=== PATIENT | female | born 1985 | race Hispanic/Latino ===

== ENCOUNTER 2017-11-29 22:58 | Emergency (ER) | payer SELFPAY ==
--- NOTE | 2017-11-30 00:06 | ER ---
Nurse's Notes [facility] Name: Kiana Foster Age: 32 yrs Sex: Female : 1985 Arrival Date: 11/29/2017 Time: 23:01 Bed 24 Private MD: Diagnosis: Local infection of the skin and subcutaneous tissue, unspecified Presentation: 11/29 23:13 Presenting complaint: Patient states: that she noted a couple of days ago that she what fc she thinks is an insect bit to left lower abd. Today it opened and had yellow drainage. Area around the wound is red, hot and tender. Transition of care: patient was not received from another setting of care. Onset of symptoms was November 27, 2017. Risk Assessment: Do you want to hurt yourself or someone else? Patient reports no desire to harm self or others. Initial Sepsis Screen: Does the patient meet any 2 criteria? No. Patient's initial sepsis screen is negative. Does the patient have a suspected source of infection? No. Patient's initial sepsis screen is negative. Care prior to arrival: None. 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 - Social history:: Smoking status: Patient uses tobacco products, smokes one pack cigarettes per day. - Ebola Screening: : Patient negative for fever greater than or equal to 101.5 degrees Fahrenheit, and additional compatible Ebola Virus Disease symptoms Patient denies exposure to infectious person Patient denies travel to an Ebola-affected area in the 21 days before illness onset. Screenin:19 Abuse screen: Denies threats or abuse. Denies injuries from another. Nutritional mg2 screening: No deficits noted. Tuberculosis screening: No symptoms or risk factors identified. Fall Risk None identified. Assessment: 23:19 General: Appears in no apparent distress. comfortable, Behavior is calm, cooperative. mg2 Pain: Complains of pain in left lower abdomen Pain does not radiate. Pain currently is 6 out of 10 on a pain scale. Quality of pain is described as aching, Pain began gradually, 2-3 days ago. Is intermittent. Neuro: Level of Consciousness is awake, alert, obeys commands, Oriented to person, place, time, situation. Cardiovascular: Capillary refill < 3 seconds Patient's skin is warm and dry. Respiratory: Airway is patent Respiratory effort is even, unlabored, Respiratory pattern is regular, symmetrical. GI: No signs and/or symptoms were reported involving the gastrointestinal system. : No signs and/or symptoms were reported regarding the genitourinary system. EENT: No signs and/or symptoms were reported regarding the EENT system. Derm: Skin has lesions on in the left lower abdomen Skin is pink, warm \T\ dry. normal, Abscess located on left lower abdomen is quarter sized. Musculoskeletal: Circulation, motion, and sensation intact. Vital Signs: 23:16 BP 140 / 95; Pulse 77; Resp 18; Temp 99.7(O); Pulse Ox 100% on R/A; Weight 142.88 kg fc (R); Height 5 ft. 8 in. (172.72 cm) (R); Pain 6/10; 23:16 Body Mass Index 47.89 (142.88 kg, 172.72 cm) ED Course: 23:01 Patient arrived in ED. es 23:15 Triage completed. 23:16 Arm band placed on Patient placed in an exam room, on a stretcher. 23:19 Clif Vallejo, ANTHONY is Primary Nurse. mg2 23:24 Patient has correct armband on for positive identification. Door closed. Warm blanket mg2 given. 23:31 Lew Carrion PA is PHCP. jr8 23:31 Rick Moran MD is Attending Physician. jr8 08 00:16 No provider procedures requiring assistance completed. Patient did not have IV access mg2 during this emergency room visit. Administered Medications: No medications were administered Outcome: 00:06 Discharge ordered by . jr8 00:16 Discharged to home ambulatory, with family. mg2 00:16 Condition: good 00:16 Discharge instructions given to patient, family, Instructed on discharge instructions, follow up and referral plans. medication usage, Demonstrated understanding of instructions, follow-up care, medications, Prescriptions given X 1. 00:20 Patient left the ED. mg2 Signatures: Alyse Barrientos Felicia RN RN fc Lew Carrion PA PA jr8 Clif Vallejo, RN RN mg2
--- NOTE | 2017-11-30 00:06 | EDPHYS ---
Physician Documentation [facility] Name: Kiana Foster Age: 32 yrs Sex: Female : 1985 Arrival Date: 11/29/2017 Time: 23:01 Bed 24 Private MD: ED Physician Rick Moran HPI: 11/30 00:01 This 32 yrs old Female presents to ER via Ambulatory with complaints of skin jr8 infection . 00:01 the patient presents with a swollen area of the abdomen. Description: The affected area jr8 is small, well demarcated, draining, erythematous. Onset: The symptoms/episode began/occurred gradually, 2 day(s) ago. Possible cause(s): unknown. Associated signs and symptoms: The patient has no apparent associated signs or symptoms. Severity of symptoms: At their worst the symptoms were mild, in the emergency department the symptoms are unchanged. The patient has not experienced similar symptoms in the past. The patient has not recently seen a physician. Patient stated that she noticed blood blister like formation on lower abdomen the size of a quarter. Today it popped. Blood and yellow exudative material came from wound. Stated that she has increased erythema around the wound now as well . 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 - Social history:: Smoking status: Patient uses tobacco products, smokes one pack cigarettes per day. - Ebola Screening: : Patient negative for fever greater than or equal to 101.5 degrees Fahrenheit, and additional compatible Ebola Virus Disease symptoms Patient denies exposure to infectious person Patient denies travel to an Ebola-affected area in the 21 days before illness onset. ROS: 11/30 00:01 Eyes: Negative for injury, pain, redness, and discharge, ENT: Negative for injury, jr8 pain, and discharge, Neck: Negative for injury, pain, and swelling, Cardiovascular: Negative for chest pain, palpitations, and edema, Respiratory: Negative for shortness of breath, cough, wheezing, and pleuritic chest pain, Abdomen/GI: Negative for abdominal pain, nausea, vomiting, diarrhea, and constipation, Back: Negative for injury and pain, MS/Extremity: Negative for injury and deformity, Neuro: Negative for headache, weakness, numbness, tingling, and seizure. Skin: Positive for abscess, erythema, of the abdomen. Exam: 00:01 Eyes: Pupils equal round and reactive to light, extra-ocular motions intact. Lids and jr8 lashes normal. Conjunctiva and sclera are non-icteric and not injected. Cornea within normal limits. Periorbital areas with no swelling, redness, or edema. ENT: Nares patent. No nasal discharge, no septal abnormalities noted. Tympanic membranes are normal and external auditory canals are clear. Oropharynx with no redness, swelling, or masses, exudates, or evidence of obstruction, uvula midline. Mucous membranes moist. Neck: Trachea midline, no thyromegaly or masses palpated, and no cervical lymphadenopathy. Supple, full range of motion without nuchal rigidity, or vertebral point tenderness. No Meningismus. Cardiovascular: Regular rate and rhythm with a normal S1 and S2. No gallops, murmurs, or rubs. Normal PMI, no JVD. No pulse deficits. Respiratory: Lungs have equal breath sounds bilaterally, clear to auscultation and percussion. No rales, rhonchi or wheezes noted. No increased work of breathing, no retractions or nasal flaring. Abdomen/GI: Soft, non-tender, with normal bowel sounds. No distension or tympany. No guarding or rebound. No evidence of tenderness throughout. Back: No spinal tenderness. No costovertebral tenderness. Full range of motion. MS/ Extremity: Pulses equal, no cyanosis. Neurovascular intact. Full, normal range of motion. Neuro: Awake and alert, GCS 15, oriented to person, place, time, and situation. Cranial nerves II-XII grossly intact. Motor strength 5/5 in all extremities. Sensory grossly intact. Cerebellar exam normal. Normal gait. 00:01 Skin: Quarter sized area on left lower abdomen that had previous blister formation. Now with serosanguinous discharge from wound. About 3 cm of erythema surrounds the blister. Mild induration felt. No fluctuance noted . Vital Signs: 11/29 23:16 BP 140 / 95; Pulse 77; Resp 18; Temp 99.7(O); Pulse Ox 100% on R/A; Weight 142.88 kg (R); Height 5 ft. 8 in. (172.72 cm) (R); Pain 6/10; 23:16 Body Mass Index 47.89 (142.88 kg, 172.72 cm) MDM: 23:31 Patient medically screened. jr8 11/30 00:01 Data reviewed: vital signs, nurses notes, and as a result, I will discharge patient. jr8 Data interpreted: Pulse oximetry: on room air is 100 %. Interpretation: normal. Counseling: I had a detailed discussion with the patient and/or guardian regarding: the historical points, exam findings, and any diagnostic results supporting the discharge/admit diagnosis, the need for outpatient follow up, a family practitioner, to return to the emergency department if symptoms worsen or persist or if there are any questions or concerns that arise at home. Administered Medications: No medications were administered Disposition: 07:08 Co-signature as Attending Physician, Rick Moran MD I agree with the assessment and wa plan of care. Disposition: 11/30/17 00:06 Discharged to Home. Impression: Local infection of the skin and subcutaneous tissue, unspecified. - Condition is Stable. - Discharge Instructions: Skin Abscess, Cellulitis, Adult. - Prescriptions for Bactrim DS 800- 160 mg Oral Tablet - take 1 tablet by ORAL route every 12 hours for 10 days; 20 tablet. - Medication Reconciliation Form, Thank You Letter, Antibiotic Education, Prescription Opioid Use, Work release form form. - Follow up: Private Physician; When: 5 - 6 days; Reason: Recheck today's complaints, Continuance of care, Re-evaluation by your physician. - Problem is new. - Symptoms have improved. Signatures: Jessi Walsh RN RN Lew Carrion PA PA jr8 Rick Moran MD MD mo Clif Vallejo RN RN mg2 Corrections: (The following items were deleted from the chart) 00:20 00:06 11/30/2017 00:06 Discharged to Home. Impression: Local infection of the skin and mg2 subcutaneous tissue, unspecified. Condition is Stable. Forms are Medication Reconciliation Form, Thank You Letter, Antibiotic Education, Prescription Opioid Use. Follow up: Private Physician; When: 5 - 6 days; Reason: Recheck today's complaints, Continuance of care, Re-evaluation by your physician. Problem is new. Symptoms have improved. jr8
[2017-11-30 00:43] VITALS: TEMP 99.7
[2017-11-30 00:48] VITALS: O2SAT 98
[2017-11-30 00:50] VITALS: BP 117/48
== END 2017-11-30 00:20 | disposition home or self-care (01) ==
LOC: ER 22:58
DX: L08.9 Local infection of the skin and subcutaneous tissue, unspecified (principal); F17.210 Nicotine dependence, cigarettes, uncomplicated
CPT/HCPCS: 99282

== ENCOUNTER 2018-01-09 19:06 | Inpatient (IN) | payer SELFPAY ==
[2018-01-09] MEDS ORDERED: ONDANSETRON 4 MG/2 ML VIAL ONE ×2 (19:55→21:16)
[2018-01-09] MEDS ORDERED: MORPHINE 4 MG/ML SYR ONE ×3 (19:55→22:08)
[2018-01-09] MEDS ORDERED: CEFTRIAXONE/SWI 1gm 1 GM/10 ML SYR ONE (19:55)
[2018-01-09] MEDS ORDERED: NA CHLORIDE 0.9% 1,000 ML ONE ×2 (19:55→20:15)
[2018-01-09 19:57] LABS: Absolute Lymphocytes (CBC) 1.2 K/uL (0.7-4.9); Absolute Monocytes 0.7 K/uL (0.1-1.3); Absolute Neutrophil 10.8 K/uL (1.8-8.0); Basophils % 0.3 % (0-1.3); Eosinophils % 0.6 % (0-4.4); Lymphocytes % 9.1 % (15.3-44.8); MCH 30.4 pg (27.0-35.0); MCV 90.3 fL (80-100); MPV 8.7 fL (7.6-11.3); Monocytes % 5.3 % (3.3-12.3); RBC Red Blood Cell Count 4.54 M/uL (3.86-4.86)
[2018-01-09 20:06] LABS: Urine Bacteria >50 /HPF (<20); Urine Culture Reflex Order NOT NEEDED; Urine RBC 20-50 /HPF (NONE SEEN)
[2018-01-09 20:14] LABS: Albumin 3.7 g/dL (3.4-5.0); Bilirubin Direct 0.1 mg/dL (0-0.2); Bilirubin Total 0.4 mg/dL (0.2-1.0); Protein, Total 8.3 g/dL (6.4-8.2)
--- NOTE | 2018-01-09 20:21 | RAD REPORT ---
EXAM DESCRIPTION: CT - Abdomen Pelvis Wo Contrast - 01/09/2018 7:51 pm CLINICAL HISTORY: Abdominal pain. renal colic COMPARISON: Abdomen Pelvis W Contrast dated 07/01/2016 TECHNIQUE: CT imaging of the abdomen and pelvis was performed without contrast. Solid organ, bowel a nd vascular assessment is limited due to lack of IV and oral contrast. All CT scans are performed using dose optimization technique as appropriate and may include automated exposure control or mA/KV adjustment according to patient size. FINDINGS: Small pulmonary nodule in the right lower lobe measuring 8 mm is noted, unchanged. The liver, spleen, pancreas, adrenal glands and right kidney are within normal limits for a limited n on-contrast examination.Mild left hydronephrosis and hydroureter is present caused by a suspected 1-2 mm calculus in the distal left ureter. No bowel obstruction, free air, free fluid or abscess. The appendix is normal. The osseous structures are within normal limits. IMPRESSION: Suspected 1-2 mm calculus in the distal left ureter resulting in mild left hydronephrosi s. A limited non-contrast examination was performed as detailed.
--- NOTE | 2018-01-09 20:35 | EDPHYS ---
Physician Documentation [facility] Name: Kiana Foster Age: 32 yrs Sex: Female : 1985 Arrival Date: 01/09/2018 Time: 19:08 Bed 15 Private MD: ED Physician Saloni Kim HPI: 01/09 19:42 This 32 yrs old Female presents to ER via Wheelchair with complaints of Flank ma2 Pain, Back Pain. 19:42 The patient complains of pain in the left low back. The pain does not radiate. Onset: ma2 The symptoms/episode began/occurred gradually, 1 day(s) ago. Associated signs and symptoms: Pertinent positives: dysuria, fever, nausea, vomiting, Pertinent negatives: diarrhea, dizziness. Severity of pain: in the emergency department the pain is actually worse. The patient has experienced a previous episode. 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 - Social history:: Smoking status: Patient/guardian denies using tobacco, Patient/guardian denies using alcohol, street drugs, The patient lives with family. - Ebola Screening: : No symptoms or risks identified at this time. - Family history:: not pertinent. ROS: 19:42 Constitutional: Negative for fever, chills, and weight loss, ENT: Negative for injury, ma2 pain, and discharge, Cardiovascular: Negative for chest pain, palpitations, and edema. 19:42 : Positive for urinary symptoms, flank pain, Negative for burning with urination, difficulty urinating, missed period. 19:42 All other systems are negative. Exam: 19:42 Neck: Trachea midline, no thyromegaly or masses palpated, and no cervical ma2 lymphadenopathy. Supple, full range of motion without nuchal rigidity, or vertebral point tenderness. No Meningismus. Chest/axilla: Normal chest wall appearance and motion. Nontender with no deformity. No lesions are appreciated. Cardiovascular: Regular rate and rhythm with a normal S1 and S2. No gallops, murmurs, or rubs. Normal PMI, no JVD. No pulse deficits. Respiratory: Lungs have equal breath sounds bilaterally, clear to auscultation and percussion. No rales, rhonchi or wheezes noted. No increased work of breathing, no retractions or nasal flaring. MS/ Extremity: Pulses equal, no cyanosis. Neurovascular intact. Full, normal range of motion. Neuro: Awake and alert, GCS 15, oriented to person, place, time, and situation. Cranial nerves II-XII grossly intact. Motor strength 5/5 in all extremities. Sensory grossly intact. Cerebellar exam normal. Normal gait. 19:42 Abdomen/GI: Soft, non-tender, with normal bowel sounds. No distension or tympany. No guarding or rebound. No evidence of tenderness throughout. 19:42 Constitutional: The patient appears in no acute distress. 19:42 : CVA tenderness, on the left. Vital Signs: 19:35 BP 143 / 92; Pulse 85; Resp 19; Temp 98.5(O); Pulse Ox 100% on R/A; Weight 141.52 kg; ea Height 5 ft. 8 in. (172.72 cm); Pain 8/10; 20:01 BP 146 / 82; Pulse 84; Resp 18; Pulse Ox 100% ; Pain 5/10; ea 21:00 BP 176 / 82; Pulse 75; Resp 18; Pulse Ox 100% ; ea 22:15 BP 154 / 89; Pulse 75; Resp 18; Temp 98; Pulse Ox 100% on R/A; Pain 6/10; ea 19:35 Body Mass Index 47.44 (141.52 kg, 172.72 cm) ea MDM: 19:24 Patient medically screened. ma2 19:42 Differential diagnosis: nephrolithiasis, pyelonephritis, UTI, pancreatitis. ma2 20:30 Data reviewed: vital signs, nurses notes, lab test result(s), radiologic studies. ma2 Counseling: I had a detailed discussion with the patient and/or guardian regarding: the historical points, exam findings, and any diagnostic results supporting the discharge/admit diagnosis, the presence of at least one elevated blood pressure reading (>120/80) during this emergency department visit, the need for further work-up and treatment in the hospital. Response to treatment: the patient's symptoms have mildly improved after treatment. ED course: case discussed with Dr. Proctor urologist, he recommend admission npo and IV abx, discussed and accepted by Dr. jarrett . 01/09 19:32 Order name: Urine Dipstick--Ancillary (enter results) [facility] 01/09 19:32 Order name: Urine Culture [facility] 01/09 19:32 Order name: Urine Microscopic Only; Complete Time: 20:24 [facility] 01/09 19:32 Order name: Urine --Ancillary (enter results) [facility] 01/09 19:40 Order name: Amylase, Serum; Complete Time: 20:24 [facility] 01/09 19:40 Order name: Basic Metabolic Panel; Complete Time: 20:24 [facility] 01/09 20:30 Interpretation: Within normal limits. [facility] 01/09 19:40 Order name: CBC with Diff; Complete Time: 20:24 [facility] 01/09 19:40 Order name: Creatinine for Radiology; Complete Time: 20:24 [facility] 01/09 19:40 Order name: Hepatic Function; Complete Time: 20:24 [facility] 01/09 19:40 Order name: Lipase; Complete Time: 20:24 [facility] 01/09 20:45 Order name: CBC with Automated Diff [facility] 01/09 20:45 Order name: CBC with Automated Diff [facility] 01/09 20:45 Order name: Comprehensive Metabolic Panel [facility] 01/09 20:45 Order name: Comprehensive Metabolic Panel [facility] 01/09 19:40 Order name: Urine Test (obtain specimen); Complete Time: 19:42 [facility] 01/09 19:40 Order name: IV Saline Lock; Complete Time: 19:42 [facility] 01/09 19:40 Order name: Labs collected and sent; Complete Time: 19:42 [facility] 01/09 19:40 Order name: CT Abd/Pelvis - Without Cont; Complete Time: 20:24 [facility] 01/09 20:40 Order name: CONS Pharmacy Consult [facility] 01/09 20:40 Order name: NPO [facility] 01/09 20:45 Order name: CONS Pharmacy Consult [facility] 01/09 20:45 Order name: CONS Physician Consult [facility] 01/09 19:40 Order name: Urine Dipstick-Ancillary (obtain specimen); Complete Time: 19:42 ma2 Administered Medications: 20:03 Drug: NS 0.9% 1000 ml Route: IV; Rate: 1 bolus; Site: left antecubital; ea 21:30 Follow up: Response: No adverse reaction; IV Status: Completed infusion; IV Intake: ea 1000ml 20:03 Drug: morphine 4 mg Route: IVP; Site: left antecubital; ea 20:24 Follow up: Response: No adverse reaction; Pain is decreased ea 20:04 Drug: Zofran 4 mg Route: IVP; Site: left antecubital; ea 20:25 Follow up: Response: No adverse reaction; Marked relief of symptoms ea 20:04 Drug: Rocephin 1 grams Route: IV; Rate: calculated rate; Site: left antecubital; ea 20:25 Follow up: Response: No adverse reaction; IV Status: Completed infusion ea 20:19 Drug: NS 0.9% 1000 ml Route: IV; Rate: 1 bolus; Site: left antecubital; ea 22:00 Follow up: Response: No adverse reaction; IV Status: Completed infusion; IV Intake: ea 1000ml 21:00 Drug: morphine 4 mg Route: IVP; Site: left antecubital; ea 21:30 Follow up: Response: No adverse reaction; Marked relief of symptoms; Pain is decreased ea 21:17 Drug: Zofran 4 mg Route: IVP; Site: left antecubital; ea 21:30 Follow up: Response: No adverse reaction; Marked relief of symptoms ea 22:07 Drug: morphine 4 mg Route: IVP; Site: left antecubital; ea 22:20 Follow up: Response: No adverse reaction; Pain is decreased ea Disposition: 01/09/18 20:34 Hospitalization ordered by Saloni Jarrett for Inpatient Admission. Preliminary diagnosis are Calculus of lower urinary tract, Urinary tract infection, site not specified. - Bed requested for Telemetry/MedSurg (Inpatient). - Status is Inpatient Admission. ea - Condition is Fair. - Problem is new. - Symptoms are unchanged. UTI on Admission? Yes Signatures: Dispatcher [employer] EDMS R[place]a [place] rg2 Kinsey Miller RN RN ea Alzahri, Mohammad, MD MD ma2 Corrections: (The following items were deleted from the chart) 20:30 20:30 Abnormal. ma2 ma2 21:59 20:34 Hospitalization Ordered by Saloni Jarrett MD for Inpatient Admission. Preliminary rg2 diagnosis is Calculus of lower urinary tract; Urinary tract infection, site not specified. Bed requested for Telemetry/MedSurg (Inpatient). Status is Inpatient Admission. Condition is Fair. Problem is new. Symptoms are unchanged. UTI on Admission? Yes. ma2 22:30 21:59 01/09/2018 20:34 Hospitalization Ordered by Saloni Jarrett MD for Inpatient ea Admission. Preliminary diagnosis is Calculus of lower urinary tract; Urinary tract infection, site not specified. Bed requested for Telemetry/MedSurg (Inpatient). Status is Inpatient Admission. Condition is Fair. Problem is new. Symptoms are unchanged. UTI on Admission? Yes. rg2
--- NOTE | 2018-01-09 20:35 | ER ---
Nurse's Notes [facility] Name: Kiana Foster Age: 32 yrs Sex: Female : 1985 Arrival Date: 01/09/2018 Time: 19:08 Bed 15 Private MD: Diagnosis: Calculus of lower urinary tract;Urinary tract infection, site not specified Presentation: 01/09 19:31 Presenting complaint: Patient states: Patient states she started to have left flank ea pain that started yesterday and started to get worse this evening. Pt reports history of kidney stone about 18 months ago, and complains of urinary frequency. Transition of care: patient was not received from another setting of care. Onset of symptoms was January 09, 2018. Risk Assessment: Do you want to hurt yourself or someone else? Patient reports no desire to harm self or others. Initial Sepsis Screen: Does the patient meet any 2 criteria? No. Patient's initial sepsis screen is negative. Does the patient have a suspected source of infection? Yes: Dysuria/Frequency/Urgency/UTI. Care prior to arrival: None. 19:31 Method Of Arrival: Wheelchair ea 19:31 Acuity: ROGER 3 ea Triage Assessment: 19:34 General: Appears uncomfortable, Behavior is calm, cooperative. Pain: Complains of pain ea in left low back, left flank Pain currently is 8 out of 10 on a pain scale. Quality of pain is described as aching, Pain began 1 day ago. Is intermittent. EENT: No signs and/or symptoms were reported regarding the EENT system. Neuro: Level of Consciousness is awake, alert, obeys commands, Oriented to person, place, time, situation. Cardiovascular: Patient's skin is warm and dry. Respiratory: Airway is patent Respiratory effort is even, unlabored, Respiratory pattern is regular, symmetrical. GI: Abdomen is non-distended, Bowel sounds present X 4 quads. : Reports urinary frequency. Derm: Skin is pink, warm \T\ dry. Musculoskeletal: Circulation, motion, and sensation intact. 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 - Social history:: Smoking status: Patient/guardian denies using tobacco, Patient/guardian denies using alcohol, street drugs, The patient lives with family. - Ebola Screening: : No symptoms or risks identified at this time. - Family history:: not pertinent. Screenin:36 Abuse screen: Denies threats or abuse. Nutritional screening: No deficits noted. ea Tuberculosis screening: No symptoms or risk factors identified. Fall Risk None identified. Assessment: 19:31 Reassessment: see triage assessment. Neuro: Level of Consciousness is awake, alert, ea obeys commands, Oriented to person, place, time, situation. 20:24 Reassessment: Patient and/or family updated on plan of care and expected duration. Pain ea level reassessed. Patient is alert, oriented x 3, equal unlabored respirations, skin warm/dry/pink. Patient states feeling better. Patient states symptoms have improved. 21:00 Reassessment: Pt complaining of pain, provider notified, med order obtained, medication ea administered, pt tolerated well. 22:16 Reassessment: Report given to Nazanin CRUZ on fourth floor. ea Vital Signs: 19:35 BP 143 / 92; Pulse 85; Resp 19; Temp 98.5(O); Pulse Ox 100% on R/A; Weight 141.52 kg; ea Height 5 ft. 8 in. (172.72 cm); Pain 8/10; 20:01 BP 146 / 82; Pulse 84; Resp 18; Pulse Ox 100% ; Pain 5/10; ea 21:00 BP 176 / 82; Pulse 75; Resp 18; Pulse Ox 100% ; ea 22:15 BP 154 / 89; Pulse 75; Resp 18; Temp 98; Pulse Ox 100% on R/A; Pain 6/10; ea 19:35 Body Mass Index 47.44 (141.52 kg, 172.72 cm) ea ED Course: 19:08 Patient arrived in ED. rg4 19:23 Saloni Kim MD is Attending Physician. ma2 19:30 Arm band placed on right wrist. Patient placed in an exam room, on a stretcher, on ea pulse oximetry. 19:30 Urine collected: clean catch specimen, cloudy. cc 19:31 Kinesy Miller, ANTHONY is Primary Nurse. ea 19:33 Triage completed. ea 19:36 Patient has correct armband on for positive identification. Bed in low position. Call ea light in reach. Side rails up X 1. 19:40 Initial lab(s) drawn, by me, sent to lab. Inserted saline lock: 20 gauge in left cc antecubital area, using aseptic technique. Blood collected. 19:[address] j6 19:50 CT completed. Patient tolerated procedure well. Patient moved back from CT. 6 19:51 CT Abd/Pelvis - Without Cont In Process Unspecified. EDMS 20:32 Saloni Kessler MD is Hospitalizing Provider. ma 22:16 No provider procedures requiring assistance completed. Patient admitted, IV remains in ea place. Administered Medications: 20:03 Drug: NS 0.9% 1000 ml Route: IV; Rate: 1 bolus; Site: left antecubital; ea 21:30 Follow up: Response: No adverse reaction; IV Status: Completed infusion; IV Intake: ea 1000ml 20:03 Drug: morphine 4 mg Route: IVP; Site: left antecubital; ea 20:24 Follow up: Response: No adverse reaction; Pain is decreased ea 20:04 Drug: Zofran 4 mg Route: IVP; Site: left antecubital; ea 20:25 Follow up: Response: No adverse reaction; Marked relief of symptoms ea 20:04 Drug: Rocephin 1 grams Route: IV; Rate: calculated rate; Site: left antecubital; ea 20:25 Follow up: Response: No adverse reaction; IV Status: Completed infusion ea 20:19 Drug: NS 0.9% 1000 ml Route: IV; Rate: 1 bolus; Site: left antecubital; ea 22:00 Follow up: Response: No adverse reaction; IV Status: Completed infusion; IV Intake: ea 1000ml 21:00 Drug: morphine 4 mg Route: IVP; Site: left antecubital; ea 21:30 Follow up: Response: No adverse reaction; Marked relief of symptoms; Pain is decreased ea 21:17 Drug: Zofran 4 mg Route: IVP; Site: left antecubital; ea 21:30 Follow up: Response: No adverse reaction; Marked relief of symptoms ea 22:07 Drug: morphine 4 mg Route: IVP; Site: left antecubital; ea 22:20 Follow up: Response: No adverse reaction; Pain is decreased ea Intake: 21:30 IV: 1000ml; Total: 1000ml. ea 22:00 IV: 1000ml; Total: 2000ml. ea Outcome: 20:34 Decision to Hospitalize by Provider. mecca 22:17 Admitted to Med/surg accompanied by tech, room 421, with chart, Report called to eliot Back RN 22:26 Condition: stable ea 22:30 Patient left the ED. eliot Signatures: Dispatcher [employer] EDMS Karma Berumen Rubi rg4 Kinsey Miller RN RN Saloni Gonzalez MD MD ma2 Ilsa Murrayg6
[2018-01-09] MEDS ORDERED: ONDANSETRON 4 MG (ODT) TAB PO PRN (20:36)
[2018-01-09] MEDS ORDERED: ACETAMINOPHEN 500 MG TAB PO PRN (20:36)
[2018-01-09] MEDS ORDERED: MORPHINE 4 MG/ML SYR IV PRN (20:36)
[2018-01-09] MEDS ORDERED: D5.45NS W/KCL 20MEQ 1,000 ML IV SCH (21:00)
[2018-01-09 22:45] VITALS: BMI 47.4
[2018-01-09 23:06] LABS: Urine Blood 2+ (NEG); Urine Glucose NEGATIVE (NEG); Urine Protein 2+ (NEG); Urine Specific Gravity 1.025 (1.005-1.030)
[2018-01-09] MEDS: NA CHLORIDE 0.9% 1,000 ML IV SCH (23:11)
[2018-01-10] MEDS: MORPHINE 4 MG/ML SYR IV PRN ×5 (05:16→23:22)
[2018-01-10] MEDS: METOPROLOL TAR 50 MG TAB PO SCH ×2 (05:16→17:59)
[2018-01-10 06:03] LABS: Absolute Lymphocytes (CBC) 2.5 K/uL (0.7-4.9); Absolute Monocytes 0.9 K/uL (0.1-1.3); Absolute Neutrophil 7.5 K/uL (1.8-8.0); Basophils % 0.3 % (0-1.3); Eosinophils % 1.2 % (0-4.4); Hematocrit 37.5 % (36.0-45.0); Lymphocytes % 22.8 % (15.3-44.8); MCH 30.5 pg (27.0-35.0); MCV 90.8 fL (80-100); MPV 8.9 fL (7.6-11.3); Monocytes % 8.3 % (3.3-12.3); RBC Red Blood Cell Count 4.13 M/uL (3.86-4.86)
[2018-01-10 06:21] LABS: Albumin 3.1 g/dL (3.4-5.0); Bilirubin Total 0.5 mg/dL (0.2-1.0); Potassium 4.2 mmol/L (3.5-5.1); Protein, Total 7.2 g/dL (6.4-8.2)
--- NOTE | 2018-01-10 08:18 | P.HP ---
Certification for Inpatient Patient admitted to: Inpatient With expected LOS: >2 Midnights Patient will require the following post-hospital care: None Practitioner: I am a practitioner with admitting privileges, knowledge of patient current condition, hospital course, and medical plan of care. Services: Services provided to patient in accordance with Admission requirements found in Title 42 Section 412.3 of the Code of Federal Regulations Patient History Date of Service: 01/09/18 Reason for admission: UTI/nephrolithiasis/hydronephrosis History of Present Illness: Patient is a 32-year-old female with history of nephrolithiasis. She presents to the hospital with complaints of left-sided flank pain. Her workup revealed a small stone in the ureters with left-sided hydronephrosis. Patient will be admitted to the hospital and will consult Urology. Patient may benefit from cystoscopy with stent placement. Patient will also need antibiotic for UTI. NPO after midnight for possible intervention. Allergies No Known Allergies Allergy (Verified 01/09/18 22:51) Home Medications: NK [No Home Meds] 01/09/18 - Past Medical/Surgical History Has patient received pneumonia vaccine in the past: No Diabetic: No -: kidney stones -: kidney stones removal -: tonsillectomy - Family History Father History Unknown: Yes Mother History Unknown: Yes - Social History Smoking Status: Current every day smoker Alcohol use: Yes CD- Drugs: No Caffeine use: Yes Place of Residence: Home Review of Systems 10-point ROS is otherwise unremarkable Physical Examination - Vital Signs Temperature: 97.4 F Blood Pressure: 139/76 Pulse: 69 Respirations: 18 Pulse Ox (%): 100 - Physical Exam General: Alert, In no apparent distress, Oriented x3 HEENT: Atraumatic, PERRLA, Mucous membr. moist/pink, EOMI, Sclerae nonicteric Neck: Supple, 2+ carotid pulse no bruit, No LAD, Without JVD or thyroid abnormality Respiratory: Clear to auscultation bilaterally, Normal air movement Cardiovascular: Regular rate/rhythm, Normal S1 S2, No murmurs Gastrointestinal: Normal bowel sounds, Soft and benign, Non-distended, Tenderness (Flank tenderness) Musculoskeletal: No clubbing, No swelling, No tenderness Integumentary: No rashes Neurological: Normal gait, Normal speech, Normal strength at 5/5 x4 extr, Normal tone, Sensation intact, Cranial nerves 3-12 intact, Normal affect Lymphatics: No axilla or inguinal lymphadenopathy - Studies Laboratory Data (last 24 hrs) 01/09/18 19:40: Creatinine 0.80 01/09/18 19:40: WBC 12.7 H, Hgb 13.8, Hct 41.0, Plt Count 332 01/09/18 19:40: Sodium 138, Potassium 4.0, BUN 10, Creatinine 0.80, Glucose 113 H, Total Bilirubin 0.4, AST 20, ALT 41, Alkaline Phosphatase 87, Amylase 28, Lipase 75 Assessment & Plan - Plan Assessment: 1. Nephrolithiasis with left-sided hydronephrosis 2. Urinary tract infection with possible infected kidney stone 3. Morbid obesity Plan: 1. IV hydration 2. IV antibiotics 3. Pain control 4. Urology Consult 5. NPO after midnight for possible cystoscopy 6. GI and DVT prophylaxis Discharge Plan: Home Plan to discharge in: 48 Hours - Advance Directives Does patient have a Living Will: No Does patient have a Durable POA for Healthcare: No - Code Status/Comfort Care Code Status Assessed: Yes Code Status: Full Code Critical Care: No Time Spent Managing PTS Care (In Minutes): 50
[2018-01-10] MEDS: CEFTRIAXONE/SWI 1gm 1 GM/10 ML SYR IV SCH (08:20)
[2018-01-10] MEDS: NA CHLORIDE 0.9% 1,000 ML IV SCH ×3 (08:20→20:35)
[2018-01-10] MEDS ORDERED: CEFTRIAXONE 1 GM/NS 50 ML 1 GM/50 ML BAG IV SCH (09:00)
[2018-01-10] MEDS ORDERED: PROPOFOL 200 MG/20 ML VIAL IV ONE (13:30)
[2018-01-10] MEDS ORDERED: MIDAZOLAM HCL 2 MG/2 ML INJ ONE (13:32)
[2018-01-10] MEDS ORDERED: LIDOCAINE 2% MPF 5 ML VIAL ONE (13:32)
[2018-01-10] MEDS ORDERED: ONDANSETRON HCL 40 MG/20 ML VIAL ONE (13:32)
[2018-01-10] MEDS ORDERED: FENTANYL CITR 100 MCG/2 ML ONE (13:32)
[2018-01-10] MEDS: MEPERIDINE HCL 50 MG/ML AMP ONE ×2 (14:20→14:26)
[2018-01-10] MEDS ORDERED: MEPERIDINE HCL 50 MG/ML AMP ONE (14:41)
--- NOTE | 2018-01-10 15:47 | CON ---
History Of Present Illness: A 32-year-old female with a history of passed stones 18 months ago, was seen at [facility] where she had a cysto, ureteroscopy, laser lithotripsy, stone removal, on the left side, came out with left-sided pain tonight of 2 days' duration. She was also diagnosed with a UTI. She was admitted overnight for antibiotic and n.p.o. possible for intervention. Allergies: NO KNOWN DRUG ALLERGIES. Home Medications: None. Past Medical History: No diabetes, history of kidney stones, tonsillectomy in the past. Family History: Negative. Noncontributory. Social History: Current everyday smoker. No caffeine use. Resides at home. Review of Systems: A 10-point review of systems otherwise unremarkable. Physical Examination: General: She was afebrile, stable. HEENT: Atraumatic, normocephalic. Neck: Supple. Respiratory: Clear. Cardiovascular: S1-S2. Gastrointestinal: Soft, nontender. Musculoskeletal: No tenderness. Skin: No rashes. Neurologic: Alert and oriented. Strength 5/5. Grossly intact. Lymphatics: No adenopathy. Laboratory Data: Reviewed. Creatinine 0.8. White count 12.7, H and H 13 and 41, platelets 332. So dium 138, potassium 4.0, BUN 10, creatinine 0.8, glucose 113, total bilirubin 0.4, AST 20, ALT 41, al kaline phosphatase 87, amylase 28, lipase 75. Assessment: Small 1-2 mm stone from the left ureterovesical junction, urinary tract infection, morbi d obesity. Plan: For cysto stent placement, let the stent stay for about a week, 7-10 days, hopefully, will red uce the inflammation that she has and hopefully she can the stone once the stent is pulled. She unde rstands all the general information, alternatives, and risks and wishes to proceed. I decided not to do ureteroscopy at this point due to the fact that she has a UTI. MAYTE/GEOFFREY Voice ID: [id number] Report ID: [id number]
--- NOTE | 2018-01-10 17:55 | PN ---
Date of Progress Note: 01/10/2018 Subjective: The patient is seen and examined. Chart reviewed and case discussed with RN. The patie nt still complains of left flank pain. It is some nausea. No vomiting. Review of Systems: Negative except as above. Medications: List reviewed. Physical Examination: Vital Signs: Temperature 97.4, heart rate 69, blood pressure 139/76, respirations 18, O2 100% on erich m air. General: Awake, alert, oriented x3. Some distress. Morbidly obese female, ill-appearing. CV: S1 and S2. No murmurs. Regular rate and rhythm. Peripheral pulses present. Respiratory: Moving air well bilaterally. No wheezing or stridor. No use of accessory muscles. Gastrointestinal: Abdomen is soft, nontender, nondistended. Positive bowel sounds. The patient has left flank pain. Extremities: No clubbing, cyanosis, or edema. Neurologic: Nonfocal. Laboratory Data: Sodium 143, potassium 4.2, chloride 110, CO2 28, BUN 8, creatinine 0.8, glucose 105 , calcium 9.3. Albumin 3.1. WBC 11.2, H and H 12.6, 37.5, platelets 294, neutrophils 67%. Urine cu ltures growing 100,000 colony-forming units of 3+ gram-negative rods. Assessment And Plan: A 32-year-old female with: 1.Nephrolithiasis with left-sided hydronephrosis. We will continue with IV antibiotics and IV fluid s. Dr. Proctor with Neurology has been consulted. 2.Urinary tract infection with possible infected kidney stone. Continue with IV antibiotics. Urine culture growing out gram-negative rods. ID and sensitivity pending. 3.Morbid obesity with BMI 47.4. The patient will likely need cystoscopy and possible stent placement. 4.Continue current treatment. SA/MODL Voice ID: [id number] Report ID: [id number]
--- NOTE | 2018-01-11 01:08 | OP ---
Surgeon: Real Proctor MD Preoperative Diagnoses: A 1 to 2 mm stone, left ureterovesical junction, urinary tract infection, ch ronic pain. Postoperative Diagnoses: A 1 to 2 mm stone, left ureterovesical junction, urinary tract infection, c hronic pain. Procedure Performed: Cystoscopy, left retrograde pyelogram, and insertion of double-J stent. Findings: No hydronephrosis was found. Ureter was thin. I felt this was not hydronephrotic. Mild obstruction was found on the left UVJ possible to stone. Stent went by easily. Her bladder was urvashi ened and inflamed like she had a UTI. Urine culture pending. Complications: None. Drains Placed: A 6-Turkmen x 30 cm stent with string placed in vagina to facilitate removal. Indication: A 32-year-old lady who has been having pain for 2 days now, left flank pain and came in with UTI. It was deemed necessary to go ahead and place a stent before she gets a pyelonephritis. S he was given all general information, alternatives, and risks. She received perioperative antibiotic , Rocephin. Description Of Procedure: We gave her all the general information, alternatives, and risks. She was taken to the operative suite, placed in a supine lithotomy position. After general anesthesia was a dministered, the area was prepped and draped. Obturator was placed per urethra in the bladder with a 30-degree lens finding a red and inflamed bladder mucosa all over the bladder, right, left dome, and trigone. Bladder neck and urethra were normal. We then did a left retrograde pyelogram to delineat e the ureter up to the renal pelvis taking care not to use too much pressure to avoid seeding of bact eria. We then placed a guidewire coil, measured the ureter, measured about 30+ cm, the longest that we have is a 30 cm stent, this was placed. It was a nice tight coil in the renal pelvis and bladder. String left attached coming out through the vagina to facilitate removal. We should hopefully leav e the stent in for a week to dilate the ureter to help her pass the 1 mm stone. MAYTE/GEOFFREY Voice ID: [id number] Report ID: [id number]
[2018-01-11] MEDS: MORPHINE 4 MG/ML SYR IV PRN ×2 (03:55→08:23)
[2018-01-11 04:22] LABS: Absolute Lymphocytes (CBC) 2.6 K/uL (0.7-4.9); Absolute Monocytes 0.8 K/uL (0.1-1.3); Absolute Neutrophil 7.2 K/uL (1.8-8.0); Basophils % 0.4 % (0-1.3); Eosinophils % 2.1 % (0-4.4); Hematocrit 35.6 % (36.0-45.0); Lymphocytes % 23.9 % (15.3-44.8); MCH 30.6 pg (27.0-35.0); MCV 91.7 fL (80-100); Monocytes % 7.2 % (3.3-12.3); RBC Red Blood Cell Count 3.88 M/uL (3.86-4.86)
[2018-01-11 04:31] LABS: Albumin 2.8 g/dL (3.4-5.0); Bilirubin Total 0.2 mg/dL (0.2-1.0); Potassium 4.3 mmol/L (3.5-5.1); Protein, Total 6.7 g/dL (6.4-8.2)
[2018-01-11] MEDS: METOPROLOL TAR 50 MG TAB PO SCH (05:31)
[2018-01-11] MEDS: CEFTRIAXONE/SWI 1gm 1 GM/10 ML SYR IV SCH (08:23)
--- NOTE | 2018-01-11 09:24 | RAD REPORT ---
EXAM DESCRIPTION: RAD - Urethrocystogrphy Retrograde - 01/10/2018 2:08 pm CLINICAL HISTORY: Abdominal pain/ureteral stent placement. FINDINGS: Fluoroscopic spot images are submitted. The exam was performed by Dr. Proctor. They demonstrate placement of a left ureteral stent. Please refer to Dr. Proctor's report for additiona l findings. A total of nine fluoroscopic spot images are submitted. Fluoroscopy time 40 seconds.
[2018-01-11 10:03] VITALS: O2SAT 98
[2018-01-11 10:12] VITALS: BP 138/85; TEMP 97.4
--- NOTE | 2018-01-12 15:38 | DS ---
Date of Discharge: 01/11/2018 Consultants: Dr. Proctor with Urology. Procedures: Cystoscopy, left retrograde pyelogram, insertion of double-J stent. Admitting Diagnoses: 1.Nephrolithiasis with left-sided hydronephrosis. 2.Urinary tract infection with possible infected kidney stone. 3.Morbid obesity. Discharge Diagnoses: 1.Nephrolithiasis with left-sided hydronephrosis status post cystoscopy and double-J stent. 2.Urinary tract infection with infected kidney stone. Urine culture growing Escherichia coli pansen sitive except for ampicillin and cephalothin. 3.Morbid obesity, BMI 47. Hospital Course: The patient is a 32-year-old female who came into the hospital with left-sided flan k pain, found to have a kidney stone on CT scan, 1 mm calculus, resulting in mild left hydronephrosis . The patient was seen by Dr. Proctor with Urology, who performed the above-named procedure. The cain ent did have improvement in her condition. Pain improved. She was continued on IV fluids for hydrat ion as well as on IV antibiotics for hydronephrosis and infected kidney stone. The patient did well, did have some hematuria postprocedure. The patient was then cleared for discharge from Dr. Proctor's standpoint. The patient was sent home in a stable condition. Activity: As tolerated. Medications: As per medication reconciliation list. Followup: Follow up with primary care physician in 2-3 days. Follow up with urologist, Dr. Proctor in 2 weeks. Return to ER for worsening condition. Diet, calorie restricted. The patient counseled on diet and exercise regimen. Physical Examination: General: Awake, alert, oriented x3. No acute distress. CV: S1, S2. No murmurs. Respiratory: Moving air well bilaterally. Abdomen: Soft, nontender, nondistended. Positive bowel sounds. Extremities: No clubbing, cyanosis, edema. Neurologic: Nonfocal. Total time spent discharging the patient was 35 minutes. /GEOFFREY Voice ID: [id number] Report ID: [id number]
== END 2018-01-11 09:50 | disposition home or self-care (01) | DRG 690 ==
LOC: ER 19:06 → ERHOLD 20:46 → 4TH 22:04
PROVIDERS: ADMIT Hospitalist; ATTEND Family Medicine
PROC: BT1FZZZ Fluoroscopy of Left Kidney, Ureter and Bladder (ICD-10-PCS; 2018-01-10)
PROC: 0T778DZ Dilation of Left Ureter with Intraluminal Device, Via Natural or Artificial Opening Endoscopic (ICD-10-PCS; principal; 2018-01-10 15:30)
DX: N13.6 Pyonephrosis (principal); Z68.42 Body mass index [BMI] 45.0-49.9, adult; E66.01 Morbid (severe) obesity due to excess calories; B96.20 Unspecified Escherichia coli [E. coli] as the cause of diseases classified elsewhere; F17.200 Nicotine dependence, unspecified, uncomplicated
CPT/HCPCS: 36415; 51610; 74176; 74450; 80048; 80053; 80076; 81003; 81015; 81025; 82150; 83690; 85025; 87077; 87086; 87088; 87186; 96361; 96365; 96375; 99285; J0696; J2175; J2250; J2405; J3010; J7030; Q9967

== ENCOUNTER 2018-01-17 03:38 | Emergency (ER) | payer SELFPAY ==
[2018-01-17] MEDS ORDERED: ONDANSETRON 4 MG/2 ML VIAL ONE (04:02)
[2018-01-17] MEDS ORDERED: MORPHINE 4 MG/ML SYR ONE (04:02)
[2018-01-17 04:23] LABS: Absolute Lymphocytes (CBC) 3.1 K/uL (0.7-4.9); Absolute Monocytes 0.6 K/uL (0.1-1.3); Absolute Neutrophil 7.8 K/uL (1.8-8.0); Basophils % 0.8 % (0-1.3); Eosinophils % 4.7 % (0-4.4); Hematocrit 42.2 % (36.0-45.0); Lymphocytes % 25.4 % (15.3-44.8); MCH 30.3 pg (27.0-35.0); MCV 89.3 fL (80-100); MPV 8.8 fL (7.6-11.3); Monocytes % 5.3 % (3.3-12.3); RBC Red Blood Cell Count 4.73 M/uL (3.86-4.86)
[2018-01-17 04:41] LABS: Albumin 3.5 g/dL (3.4-5.0); Bilirubin Direct 0.1 mg/dL (0-0.2); Bilirubin Total 0.2 mg/dL (0.2-1.0); Potassium 3.9 mmol/L (3.5-5.1); Protein, Total 8.4 g/dL (6.4-8.2)
[2018-01-17 04:45] LABS: Urine Appearance CLOUDY; Urine Bilirubin NEGATIVE (NEG); Urine Blood 3+ (NEG); Urine Color DK YELLOW; Urine Glucose NEGATIVE (NEG); Urine Protein 3+ (NEG); Urine Urobilinogen 0.2 mg/dL (0.2-1.0)
[2018-01-17 05:03] LABS: Calcium Oxalate Crystals- Ur FEW (NONE SEEN); Urine Bacteria 20-50 /HPF (<20); Urine Culture Reflex Order REFLEXED; Urine RBC TNTC /HPF (NONE SEEN)
[2018-01-17] MEDS ORDERED: KETOROLAC 30 MG/ML INJ ONE (05:54)
--- NOTE | 2018-01-17 06:48 | ER ---
Nurse's Notes [facility] Name: Kiana Foster Age: 32 yrs Sex: Female : 1985 Arrival Date: 01/17/2018 Time: 03:39 Bed 26 Private MD: Diagnosis: Hematuria, unspecified;Calculus of lower urinary tract, unspecified Presentation: 01/17 03:58 Presenting complaint: Patient states: Came to ER last Tuesday and diagnosed with kidney lp1 stone in ureter, stent placed on Tuesday by Dr. Proctor; Patient has been having increased blood in urine and left flank pain since procedure. Transition of care: patient was not received from another setting of care. Onset of symptoms was January 17, 2018. Risk Assessment: Do you want to hurt yourself or someone else? Patient reports no desire to harm self or others. Initial Sepsis Screen: Does the patient meet any 2 criteria? No. Patient's initial sepsis screen is negative. Does the patient have a suspected source of infection? No. Patient's initial sepsis screen is negative. Care prior to arrival: None. 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 - Social history:: Smoking status: Patient uses tobacco products, smokes one-half pack cigarettes per day. - Ebola Screening: : No symptoms or risks identified at this time. Screenin:07 Abuse screen: Denies threats or abuse. Denies injuries from another. Nutritional lp1 screening: No deficits noted. Tuberculosis screening: No symptoms or risk factors identified. Fall Risk None identified. Assessment: 04:05 General: Appears uncomfortable, Behavior is crying. Pain: Complains of pain in left lp1 lower quadrant Pain radiates to left low back Pain currently is 10 out of 10 on a pain scale. Quality of pain is described as sharp, stabbing, Pain began gradually. Neuro: Level of Consciousness is awake, alert, obeys commands. Cardiovascular: Patient's skin is warm and dry. Respiratory: Respiratory effort is even, unlabored. GI: Abdomen is obese, Reports nausea. : Urine is katia blood, Reports burning with urination, cramping, in left flank(s) lower quadrant(s) pain in left flank(s). EENT: No signs and/or symptoms were reported regarding the EENT system. Derm: Skin is intact, Skin is diaphoretic, Skin is normal. Musculoskeletal: Circulation, motion, and sensation intact. 05:30 Reassessment: Patient states continued pain to left flank; Provider notified. lp1 Vital Signs: 03:59 BP 183 / 113; Pulse 85; Resp 18; Temp 98.2(O); Pulse Ox 98% on R/A; Weight 141.52 kg; lp1 Height 5 ft. 7 in. (170.18 cm); Pain 10/10; 04:04 BP 150 / 106; Pulse 67; Resp 18; Pulse Ox 97% on R/A; lp1 05:30 BP 161 / 86; Pulse 59; Resp 18; Pulse Ox 97% on R/A; lp1 06:15 BP 143 / 75; Pulse 66; Resp 18; Pulse Ox 96% on R/A; lp1 03:59 Body Mass Index 48.87 (141.52 kg, 170.18 cm) lp1 ED Course: 03:39 Patient arrived in ED. es 03:41 Ana Cristina Serna, RN is Primary Nurse. lp1 03:49 Chase Beckford MD is Attending Physician. tw4 03:59 Triage completed. lp1 04:01 Inserted saline lock: 20 gauge in right antecubital area, using aseptic technique. lp1 Blood collected. By margaret Berumen. 04:07 Patient has correct armband on for positive identification. Placed in gown. Bed in low lp1 position. Call light in reach. Pulse ox on. NIBP on. 04:07 Arm band placed on. lp1 06:48 Real Proctor MD is Referral Physician. tw4 06:54 No provider procedures requiring assistance completed. lp1 07:09 IV discontinued, No redness/swelling at site. Pressure dressing applied. lp1 Administered Medications: 04:05 Drug: morphine 4 mg Route: IVP; Site: right antecubital; lp1 05:15 Follow up: Response: Pain is decreased lp1 04:05 Drug: Zofran 4 mg Route: IVP; Site: right antecubital; lp1 05:15 Follow up: Response: Nausea is decreased lp1 05:50 Drug: TORadol 30 mg Route: IVP; Site: right antecubital; lp1 07:10 Follow up: Response: Pain is decreased lp1 Outcome: 06:47 Discharge ordered by . tw4 07:09 Discharged to home ambulatory, with family. lp1 07:09 Condition: good 07:09 Discharge instructions given to patient, Instructed on discharge instructions, follow up and referral plans. medication usage, Demonstrated understanding of instructions, follow-up care, medications, Prescriptions given X 2. 07:10 Patient left the ED. lp1 Signatures: Alyse Barrientos Laura RN RN lp1 Chase Beckford MD MD tw4
--- NOTE | 2018-01-17 06:48 | EDPHYS ---
Physician Documentation [facility] Name: Kiana Foster Age: 32 yrs Sex: Female : 1985 Arrival Date: 01/17/2018 Time: 03:39 Bed 26 Private MD: ED Physician Chase Beckford HPI: 01/17 04:49 This 32 yrs old Female presents to ER via Wheelchair with complaints of Flank tw4 Pain, Nausea. 04:49 The patient complains of pain in the left mid back. The pain radiates to the left tw4 femoral area and left inguinal area. Onset: The symptoms/episode began/occurred today. Modifying factors: The symptoms are alleviated by nothing. the symptoms are aggravated by nothing. Associated signs and symptoms: The patient has no apparent associated signs or symptoms. Severity of pain: At its worst the pain was moderate in the emergency department the pain is unchanged. The patient has not experienced similar symptoms in the past. 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 - Social history:: Smoking status: Patient uses tobacco products, smokes one-half pack cigarettes per day. - Ebola Screening: : No symptoms or risks identified at this time. ROS: 04:49 Constitutional: Negative for fever, chills, and weight loss, Cardiovascular: Negative tw4 for chest pain, palpitations, and edema, Respiratory: Negative for shortness of breath, cough, wheezing, and pleuritic chest pain, Abdomen/GI: Negative for abdominal pain, nausea, vomiting, diarrhea, and constipation. 04:49 MS/Extremity: Negative for injury and deformity, Skin: Negative for injury, rash, and discoloration, Neuro: Negative for headache, weakness, numbness, tingling, and seizure. 04:49 Back: Positive for flank pain, on the left. Exam: 04:49 Constitutional: This is a well developed, well nourished patient who is awake, alert, tw4 and in no acute distress. Head/Face: Normocephalic, atraumatic. Chest/axilla: Normal chest wall appearance and motion. Nontender with no deformity. No lesions are appreciated. Cardiovascular: Regular rate and rhythm with a normal S1 and S2. No gallops, murmurs, or rubs. Normal PMI, no JVD. No pulse deficits. Respiratory: Lungs have equal breath sounds bilaterally, clear to auscultation and percussion. No rales, rhonchi or wheezes noted. No increased work of breathing, no retractions or nasal flaring. Abdomen/GI: Soft, non-tender, with normal bowel sounds. No distension or tympany. No guarding or rebound. No evidence of tenderness throughout. 04:49 MS/ Extremity: Pulses equal, no cyanosis. Neurovascular intact. Full, normal range of motion. Neuro: Awake and alert, GCS 15, oriented to person, place, time, and situation. Cranial nerves II-XII grossly intact. Motor strength 5/5 in all extremities. Sensory grossly intact. Cerebellar exam normal. Normal gait. 04:49 Back: pain, is absent, ROM is normal, normal spinal alignment noted, CVA tenderness, is noted on the left. Vital Signs: 03:59 BP 183 / 113; Pulse 85; Resp 18; Temp 98.2(O); Pulse Ox 98% on R/A; Weight 141.52 kg; lp1 Height 5 ft. 7 in. (170.18 cm); Pain 10/10; 04:04 BP 150 / 106; Pulse 67; Resp 18; Pulse Ox 97% on R/A; lp1 05:30 BP 161 / 86; Pulse 59; Resp 18; Pulse Ox 97% on R/A; lp1 06:15 BP 143 / 75; Pulse 66; Resp 18; Pulse Ox 96% on R/A; lp1 03:59 Body Mass Index 48.87 (141.52 kg, 170.18 cm) lp1 MDM: 03:49 Patient medically screened. tw4 04:49 Differential diagnosis: nephrolithiasis, pyelonephritis. Data reviewed: vital signs, tw4 nurses notes. 01/17 03:52 Order name: Amylase, Serum; Complete Time: 06:11 tw4 01/17 03:52 Order name: Basic Metabolic Panel; Complete Time: 06:11 tw4 01/17 06:11 Interpretation: Normal except: CL 108; GFR 63. [facility] 01/17 03:52 Order name: CBC with Diff; Complete Time: 06:11 [facility] 01/17 06:11 Interpretation: WBC 12.2; RBC 4.73; HCT 42.2; PLT 418; EOSINOPHIL % 4.7. [facility] 01/17 03:52 Order name: Creatinine for Radiology; Complete Time: 06:11 [facility] 01/17 03:52 Order name: Hepatic Function; Complete Time: 06:11 [facility] 01/17 06:11 Interpretation: TP 8.4; GLOB 4.9; A/G 0.7. [facility] 01/17 03:52 Order name: Lipase; Complete Time: 06:11 [facility] 01/17 04:23 Order name: Test, Urine; Complete Time: 06:11 [facility] 01/17 04:23 Order name: Urinalysis W/Microscopic; Complete Time: 06:11 [facility] 01/17 05:04 Order name: Urine Culture [facility] 01/17 03:52 Order name: Urine Test (obtain specimen); Complete Time: 05:05 [facility] 01/17 03:52 Order name: IV Saline Lock; Complete Time: 04:05 [facility] 01/17 03:52 Order name: Labs collected and sent; Complete Time: 04:05 [facility] 01/17 03:52 Order name: Urine Dipstick-Ancillary (obtain specimen); Complete Time: 04:05 Administered Medications: 04:05 Drug: morphine 4 mg Route: IVP; Site: right antecubital; lp1 05:15 Follow up: Response: Pain is decreased lp1 04:05 Drug: Zofran 4 mg Route: IVP; Site: right antecubital; lp1 05:15 Follow up: Response: Nausea is decreased lp1 05:50 Drug: TORadol 30 mg Route: IVP; Site: right antecubital; lp1 07:10 Follow up: Response: Pain is decreased lp1 Disposition: 01/17/18 06:47 Discharged to Home. Impression: Hematuria, unspecified, Calculus of lower urinary tract, unspecified. - Condition is Stable. - Discharge Instructions: Hematuria, Adult, Kidney Stones, [id number]. - Prescriptions for Ibuprofen 800 mg Oral Tablet - take 1 tablet by ORAL route every 8 hours As needed take with food; 30 tablet. Tylenol- Codeine #3 300-30 mg Oral Tablet - take 2 tablet by ORAL route every 6 hours As needed; 6 tablet. - Medication Reconciliation Form, Thank You Letter, Antibiotic Education, Prescription Opioid Use form. - Follow up: Private Physician; When: Upon discharge from the Emergency Department; Reason: Recheck today's complaints, Continuance of care, Re-evaluation by your physician. Follow up: Real Proctor MD; When: Upon discharge from the Emergency Department; Reason: Recheck today's complaints, Continuance of care, Re-evaluation by your physician. - Problem is new. - Symptoms have improved. Signatures: Dispatcher [employer] [facility] Ana Cristina Serna RN RN lp1 Chase Beckford MD MD tw4 Corrections: (The following items were deleted from the chart) 04:23 03:52 UA MICROSCOPIC+U.LAB.BRZ ordered. [facility] 04:23 03:57 URINALYSIS+U.LAB.BRZ ordered. [facility] 06:48 06:47 01/17/2018 06:47 Discharged to Home. Impression: Hematuria, unspecified; Calculus tw4 of lower urinary tract, unspecified. Condition is Stable. Forms are Medication Reconciliation Form, Thank You Letter, Antibiotic Education, Prescription Opioid Use. Follow up: Private Physician; When: Upon discharge from the Emergency Department; Reason: Recheck today's complaints, Continuance of care, Re-evaluation by your physician. Problem is new. Symptoms have improved. tw4 07:10 06:48 01/17/2018 06:47 Discharged to Home. Impression: Hematuria, unspecified; Calculus lp1 of lower urinary tract, unspecified. Condition is Stable. Discharge Instructions: Hematuria, Adult, Kidney Stones, [id number]. Prescriptions for Ibuprofen 800 mg Oral Tablet - take 1 tablet by ORAL route every 8 hours As needed take with food; 30 tablet, Tylenol-Codeine #3 300-30 mg Oral Tablet - take 2 tablet by ORAL route every 6 hours As needed; 6 tablet. and Forms are Medication Reconciliation Form, Thank You Letter, Antibiotic Education, Prescription Opioid Use. Follow up: Private Physician; When: Upon discharge from the Emergency Department; Reason: Recheck today's complaints, Continuance of care, Re-evaluation by your physician. Follow up: Real Proctor; When: Upon discharge from the Emergency Department; Reason: Recheck today's complaints, Continuance of care, Re-evaluation by your physician. Problem is new. Symptoms have improved. tw4
[2018-01-17 07:24] VITALS: TEMP 98.2
[2018-01-17 07:27] VITALS: BP 143/75; O2SAT 96
== END 2018-01-17 07:10 | disposition home or self-care (01) ==
LOC: ER 03:38
DX: N20.9 Urinary calculus, unspecified (principal); F17.210 Nicotine dependence, cigarettes, uncomplicated; Z87.442 Personal history of urinary calculi
CPT/HCPCS: 36415; 80048; 80076; 81001; 81025; 82150; 83690; 85025; 87086; 87088; 96374; 96375; 99284; J2405